=== PATIENT | male | born 1985 | race Caucasian/White ===

== ENCOUNTER 2019-09-12 12:47 | Emergency (ER) | payer OTHER ==
--- NOTE | 2019-09-12 13:05 | XRAY ---
Indication: Left facial numbness and droopiness. Stroke. Multiple contiguous axial images obtained through the head without contrast. Comparison: None Normal appearing brain parenchyma, ventricles, and bony calvarium. Visualized paranasal sinuses and mastoid air cells are clear. Impression: Normal CT head without contrast exam. Follow up CT or MRI may yield further information if there remains clinical concern.
[2019-09-12] MEDS ORDERED: Sodium Chloride 0.9% 1000 ML 1,000 ML IV STA (13:08)
[2019-09-12] MEDS ORDERED: BABY ASPIRIN 81 MG CHEW PO ONE (13:08)
[2019-09-12 13:17] VITALS: PULSE 78
[2019-09-12 13:17] LABS: INR 1.11 (0.8-3.0); PROTIME 12.5 SECONDS (8.83-12.87)
[2019-09-12 13:19] LABS: PTT 30.2 SECONDS (24.1-36.1)
[2019-09-12 13:20] LABS: Absolute Neutrophil Ct (ANC) 4.61 (1.4-6.9); BASOPHIL % 0.3 % (0.0-0.4); Basophil (Absolute #) 0.02 (0-0.4); Eosinophil (Absolute #) 0.07 (0-0.5); Hematocrit 48.7 % (42-50); Hemoglobin 16.6 gm/dl (12.5-18.0); Lymphocyte (Absolute #) 1.61 (1.0-4.6); Mean Corpuscular Hemoglobin 30.7 pg (26-32); Mean Corpuscular Hgb Concent. 34.1 g/dl (32-36); Mean Platelet Volume 10.7 fl (7.5-11.0); Monocyte (Absolute #) 0.41 (0.0-1.3); Monocytes % 6.1 % (0.0-12.0); Neutrophil % 68.6 % (36.0-66.0); Platelet Count 156 K/mm3 (150-450); Red Blood Count 5.41 M/mm3 (4.1-5.6); Red Cell Distribution Width 12.9 % (11.5-14.0); White Blood Count 6.7 K/mm3 (4.0-10.5)
--- NOTE | 2019-09-12 13:21 | ERPHSYRPT ---
- History of Present Illness Time Seen by Provider: 09/12/19 12:50 Source: patient Exam Limitations: no limitations Physician History: 34 years old male with history of tobacco abuse presented in the ER with chief complaint of left facial numbness/weakness/droop and left upper and lower extremity weakness sudden onset when he woke up around 3 AM this morning. Last well-known is 9 PM last night. Patient reports he was tired, did eat and went back to bed again. Prior to arrival he woke up and still have weakness on the left side. He is complaining of burning sensation in the left eye as well. Facial numbness is improving but still have some droop. Mild difficulty walking due to weakness in left lower extremity. Denies any numbness and arm/leg. Denies any history of stroke/Veras's palsy in the past. Patient denies any chest pain palpitations or shortness of breath. No fever or chills reported. Timing/Duration: yesterday, sudden Severity: moderate Character of Deficits: new weakness, Left Facial, LLE, LUE Baseline/Normal Cognition: alert 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 Current Cognition: alert 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 Baseline Gait: walks w/o assistance Associated Symptoms: weakness, paresthesia Allergies/Adverse Reactions: No Known Drug Allergies Allergy (Verified 09/12/19 13:19) Hx Tetanus, Diphtheria Vaccination/Date Given: No Hx Influenza Vaccination/Date Given: No Hx Pneumococcal Vaccination/Date Given: No - Review of Systems Constitutional: Fatigue, Weakness Eyes: Eye Pain, No Vision Changes Ears, Nose, & Throat: No Symptoms Respiratory: No Symptoms Cardiac: No Symptoms Abdominal/Gastrointestinal: No Symptoms Genitourinary Symptoms: No Symptoms Musculoskeletal: No Symptoms Skin: No Symptoms Neurological: Focal Weakness, Gait Changes, Sensory Changes Psychological: No Symptoms Endocrine: No Symptoms Hematologic/Lymphatic: No Symptoms Immunological/Allergic: No Symptoms - Past Medical History Pertinent Past Medical History: No - Past Surgical History Past Surgical History: No - Social History Smoking Status: Current every day smoker Exposure to second hand smoke: Yes Drug Use: none Patient Lives Alone: No - Nursing Vital Signs Nursing Vital Signs: Initial Vital Signs Temperature 98.3 F 09/12/19 12:54 Pulse Rate 78 09/12/19 12:54 Blood Pressure 139/89 09/12/19 12:54 O2 Sat by Pulse Oximetry 100 09/12/19 12:54 Pain Scale Pain Intensity 0 - Meredith Coma Scale Best Eye Response (Neotsu): (4) open spontaneously Best Verbal Response (Meredith): (5) oriented Best Motor Response (Meredith): (6) obeys commands Neotsu Total: 15 - Physical Exam General Appearance: no apparent distress, alert Eye Exam: bilateral eye: normal inspection, PERRL, EOMI Ears, Nose, Throat Exam: normal ENT inspection, pharynx normal, moist mucous membranes Neck Exam: normal inspection, non-tender, supple, full range of motion Respiratory: normal breath sounds, lungs clear Cardiovascular: regular rate/rhythm, normal heart sounds Gastrointestinal: soft, No tenderness Back Exam: normal inspection, normal range of motion Extremity Exam: normal inspection, normal range of motion Mental Status: alert, 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, 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 Exam: normal hearing, PERRL, facial asymmetry, facial droop (Left), facial weakness (Left), tongue midline, No tongue deviation to L Coordination/Gait: normal finger to nose, normal cerebellar function, negative Romberg's sign, abnormal gait Motor/Sensory: negative Babinski's sign, sensory deficit (Face), weak motor strength LUE, weak motor strength LLE DTR: bicep (R): 2+, bicep (L): 3+, knee (R): 2+, knee (L): 3+ Skin Exam: normal color SpO2 Interpretation: normal O2 Delivery: Room Air - Course Nursing assessment & vital signs reviewed: Yes EKG Interpreted by Me: RATE (70), Sinus Rhythm, NORMAL AXIS, NORMAL INTERVALS, NORMAL QRS Ordered Tests: Medication Summary Discontinued Medications Generic Name Dose Route Start Last Admin Trade Name Joana PRN Reason Stop Dose Admin Acyclovir 1,000 mg 09/12/19 17:42 09/12/19 18:00 Zovirax 800 Mg PO 09/12/19 17:43 1,000 mg ONCE ONE Administration Acyclovir Confirm 09/12/19 17:56 Zovirax 200 Mg Administered 09/12/19 17:57 Dose 1,000 mg .ROUTE .STK-MED ONE Aspirin 324 mg 09/12/19 13:08 09/12/19 13:26 Baby Aspirin 81 Mg Chew PO 09/12/19 13:09 324 mg STAT ONE Administration Sodium Chloride 1,000 mls @ 999 mls/hr 09/12/19 13:08 09/12/19 15:01 Sodium Chloride 0.9% 1000 Ml IV 09/12/19 14:08 Infused .Q1H1M STA Infusion Sodium Chloride Confirm 09/12/19 13:25 Sodium Chloride 0.9% 1000 Ml Administered 09/12/19 13:26 Dose 1,000 mls @ ud .ROUTE .STK-MED ONE Prednisone 60 mg 09/12/19 17:41 09/12/19 18:00 Deltasone 20 Mg PO 09/12/19 17:42 60 mg STAT ONE Administration Prednisone Confirm 09/12/19 17:45 Deltasone 20 Mg Administered 09/12/19 17:46 Dose 60 mg .ROUTE .STK-MED ONE Lab/Rad Data: Laboratory Result Diagrams 09/12/19 13:17 09/12/19 13:17 Laboratory Results 09/12/19 09/12/19 09/12/19 Range/Units 16:34 13:17 13:17 WBC (4.0-10.5) K/mm3 RBC (4.1-5.6) M/mm3 Hgb (12.5-18.0) gm/dl Hct (42-50) % MCV (78-100) fl MCH (26-32) pg MCHC (32-36) g/dl RDW (11.5-14.0) % Plt Count (150-450) K/mm3 MPV (7.5-11.0) fl Gran % (36.0-66.0) % Eos # (Auto) (0-0.5) Absolute Lymphs (auto) (1.0-4.6) Absolute Monos (auto) (0.0-1.3) Lymphocytes % (24.0-44.0) % Monocytes % (0.0-12.0) % Eosinophils % (0.00-5.0) % Basophils % (0.0-0.4) % Absolute Granulocytes (1.4-6.9) Basophils # (0-0.4) PT 12.5 (8.83-12.87) SECONDS INR 1.11 (0.8-3.0) APTT 30.2 (24.1-36.1) SECONDS Sodium 140 (137-145) mmol/L Potassium 4.2 (3.5-5.1) mmol/L Chloride 107 (98-107) mmol/L Carbon Dioxide 27 (22-30) mmol/L Anion Gap 9.4 (5-15) MEQ/L BUN 22 H (9-20) mg/dL Creatinine 0.76 (0.66-1.25) mg/dL Estimated GFR > 60.0 ML/MIN Glucose 92 (74-106) mg/dL Calcium 9.1 (8.4-10.2) mg/dL Total Bilirubin 0.40 (0.2-1.3) mg/dL AST 22 (17-59) U/L ALT 15 (0-50) U/L Alkaline Phosphatase 62 (38-126) U/L Serum Total Protein 7.1 (6.3-8.2) g/dL Albumin 4.3 (3.5-5.0) g/dL Urine Color STRAW (YELLOW) Urine Appearance CLEAR (CLEAR) Urine pH 7.0 (5-6) Ur Specific Busby 1.013 (1.005-1.025) Urine Protein NEGATIVE (Negative) Urine Ketones NEGATIVE (NEGATIVE) Urine Blood NEGATIVE (0-5) Mor/ul Urine Nitrite NEGATIVE (NEGATIVE) Urine Bilirubin NEGATIVE (NEGATIVE) Urine Urobilinogen NEGATIVE (0-1) mg/dL Ur Leukocyte Esterase NEGATIVE (NEGATIVE) Urine WBC (Auto) NONE (0-5) /HPF Urine RBC (Auto) NONE (0-2) /HPF U Epithel Cells (Auto) NONE (FEW) /HPF Urine Bacteria (Auto) NONE (NEGATIVE) /HPF Urine Culture Reflexed NO (NO) Urine Glucose NEGATIVE (NEGATIVE) mg/dL 09/12/19 Range/Units 13:17 WBC 6.7 (4.0-10.5) K/mm3 RBC 5.41 (4.1-5.6) M/mm3 Hgb 16.6 (12.5-18.0) gm/dl Hct 48.7 (42-50) % MCV 90.0 (78-100) fl MCH 30.7 (26-32) pg MCHC 34.1 (32-36) g/dl RDW 12.9 (11.5-14.0) % Plt Count 156 (150-450) K/mm3 MPV 10.7 (7.5-11.0) fl Gran % 68.6 H (36.0-66.0) % Eos # (Auto) 0.07 (0-0.5) Absolute Lymphs (auto) 1.61 (1.0-4.6) Absolute Monos (auto) 0.41 (0.0-1.3) Lymphocytes % 24.0 (24.0-44.0) % Monocytes % 6.1 (0.0-12.0) % Eosinophils % 1.0 (0.00-5.0) % Basophils % 0.3 (0.0-0.4) % Absolute Granulocytes 4.61 (1.4-6.9) Basophils # 0.02 (0-0.4) PT (8.83-12.87) SECONDS INR (0.8-3.0) APTT (24.1-36.1) SECONDS Sodium (137-145) mmol/L Potassium (3.5-5.1) mmol/L Chloride (98-107) mmol/L Carbon Dioxide (22-30) mmol/L Anion Gap (5-15) MEQ/L BUN (9-20) mg/dL Creatinine (0.66-1.25) mg/dL Estimated GFR ML/MIN Glucose (74-106) mg/dL Calcium (8.4-10.2) mg/dL Total Bilirubin (0.2-1.3) mg/dL AST (17-59) U/L ALT (0-50) U/L Alkaline Phosphatase (38-126) U/L Serum Total Protein (6.3-8.2) g/dL Albumin (3.5-5.0) g/dL Urine Color (YELLOW) Urine Appearance (CLEAR) Urine pH (5-6) Ur Specific Busby (1.005-1.025) Urine Protein (Negative) Urine Ketones (NEGATIVE) Urine Blood (0-5) Mor/ul Urine Nitrite (NEGATIVE) Urine Bilirubin (NEGATIVE) Urine Urobilinogen (0-1) mg/dL Ur Leukocyte Esterase (NEGATIVE) Urine WBC (Auto) (0-5) /HPF Urine RBC (Auto) (0-2) /HPF U Epithel Cells (Auto) (FEW) /HPF Urine Bacteria (Auto) (NEGATIVE) /HPF Urine Culture Reflexed (NO) Urine Glucose (NEGATIVE) mg/dL - Progress Progress: improved, re-examined Progress Note: 34 years old male is made stroke activated. Prompt CT head is obtained which did not show any acute findings. [facility] neurology consult is obtained which recommended obtaining MRI with and without contrast as Dr. Burch thinks he probably have Veras's palsy. Work-up otherwise is negative. Patient started ambulating in the ER and no weakness in the extremities noticed later on. MRI did not show any acute findings suggesting ischemic stroke. I have discussed with Dr. Burch again who recommended starting him on a steroid, antiviral and supportive care for left I like backslash artificial tears. At this point and do not think patient needs any further work-up in the ER and is stable for discharge with outpatient neurology follow-up. Discussed signs symptoms of worsening needing return to ER which he seems understanding. Discussed with Dr.: Other (Dr. Burch neurologist specialist fabrication inspector) Counseled pt/family regarding: lab results, diagnosis, need for follow-up, rad results, smoking cessation - Departure Departure Disposition: Home Clinical Impression: Veras's palsy Condition: Stable Critical Care Time: No Critical Care Time(excluding separately billable procedures): Critical 30-74 mins Referrals: MEG AGUIAR MD [Primary Care Provider] - Follow Up with PCP/3 days CHESTER LÓPEZ [NON-STAFF PHY W/O PRIVILEGES] - Follow Up with PCP/3 days Instructions: Veras's Palsy (DC), Paresthesias (DC) Additional Instructions: Use artificial tear. Cover left eye when outside. Continue with steroid and acyclovir. Follow-up with your primary care and neurology for reevaluation. Return to ER for any worsening. Prescriptions: Acyclovir 1,000 mg PO TID 7 Days #105 capsule Prednisone 20 mg [Deltasone 20 mg] 60 mg PO DAILY 6 Days #18 tablet
[2019-09-12 13:22] LABS: ALBUMIN 4.3 g/dL (3.5-5.0); ALKALINE PHOSPHATASE 62 U/L (38-126); ANION GAP 9.4 MEQ/L (5-15); BLOOD UREA NITROGEN 22 mg/dL (9-20); CHLORIDE 107 mmol/L (98-107); Calcium 9.1 mg/dL (8.4-10.2); Carbon Dioxide 27 mmol/L (22-30); Creatinine 1 0.76 mg/dL (0.66-1.25); Glucose 92 mg/dL (74-106); Potassium 4.2 mmol/L (3.5-5.1); SGOT/AST 22 U/L (17-59); SGPT/ALT 15 U/L (0-50); SODIUM 140 mmol/L (137-145); Total Protein 7.1 g/dL (6.3-8.2)
[2019-09-12] MEDS ORDERED: Sodium Chloride 0.9% 1000 ML 1,000 ML ONE (13:25)
--- NOTE | 2019-09-12 13:50 | XRAY ---
Indication: Left face numbness. Left eye pain. Comparison: June 02, 2007. Portable chest again demonstrates normal heart, lungs, and bony thorax.
--- NOTE | 2019-09-12 15:40 | XRAY ---
Indication: Left facial drooping and weakness. Sagittal, coronal, and axial MRI brain was performed using pre-and post T1, T2, FLAIR, diffusion, and EDC sequences. 15 cc Dotarem contrast used. Comparison: None Ventriculosulcal pattern appears symmetric. No acute intracranial hemorrhage, abnormal extra-axial fluid collection, or mass effect. Diffusion images are negative for restricted signal. Following gadolinium, there is no abnormal enhancing intra or extra-axial mass. Fourth ventricle is midline without hydrocephalus. 7/8 cranial nerve complex bilaterally symmetric. Normal flow void signal within the major intracerebral circulation. Normal appearing craniocervical junction and sella turcica. Visualized paranasal sinuses are clear. Impression: Normal MRI brain with contrast exam.
[2019-09-12 17:03] LABS: Appearance CLEAR (CLEAR); Bilirubin NEGATIVE (NEGATIVE); Blood NEGATIVE Ery/ul (0-5); Glucose NEGATIVE (NEGATIVE); Ketones NEGATIVE (NEGATIVE); Leukocyte Esterase NEGATIVE (NEGATIVE); Nitrite NEGATIVE (NEGATIVE); Protein,Urine Dip NEGATIVE (Negative); Specific Gravity 1.013 (1.005-1.025); Urobilinogen NEGATIVE mg/dL (0-1)
[2019-09-12] MEDS ORDERED: DELTASONE 20 MG PO ONE (17:41)
[2019-09-12] MEDS ORDERED: ZOVIRAX 800 MG PO ONE (17:42)
[2019-09-12] MEDS ORDERED: DELTASONE 20 MG ONE (17:45)
[2019-09-12 17:52] VITALS: BP 110/71; O2SAT 97
[2019-09-12] MEDS ORDERED: ZOVIRAX 200 MG ONE (17:56)
== END 2019-09-12 18:09 | disposition home or self-care (01) ==
LOC: ED 12:47
DX: G51.0 Bell's palsy (principal)
CPT/HCPCS: 36000; 36415; 70450; 70553; 71045; 80053; 81001; 82962; 85025; 85610; 85730; 93005; 93041; 96360; 99284; 99291; A9270-GY